=== PATIENT | female | born 1965 ===

== ENCOUNTER 2019-11-22 12:13 | Emergency (ER) | payer SELFPAY ==
[2019-11-22 12:53] VITALS: BP 140/80
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
[2019-11-22 19:29] LABS: ABS Basophils 0.1 10^3/ul (0-0.2); ABS Eosinophils 0.2 10^3/ul (0-0.6); ABS Lymphocytes 2.4 10^3/ul (1.0-4.8); ABS Monocytes 0.5 10^3/ul (0-0.8); ABS Neutrophils 4.9 10^3/ul (1.5-7.7); Hematocrit 45 % (35-47); Hemoglobin 15.5 g/dL (12.0-16.0); Lymphocyte % 30.1 %; Mean Corpuscular HGB Conc 34 g/dL (31-36); Mean Corpuscular Hemoglobin 31 pg (27-31); Mean Corpuscular Volume 91 fL (80-97); Mean Platelet Volume 8.1 fL (7.4-10.4); Platelet Count 309 10^3/uL (150-450); Red Blood Count 4.99 10^6 /uL (3.70-4.87); Red Cell Distribution Width 13 % (10-15); White Blood Count 8.1 10^3/uL (3.5-10.8)
[2019-11-22 19:33] LABS: Albumin 4.4 g/dL (3.2-5.2); Calcium 9.6 mg/dL (8.6-10.3); Potassium 4.2 mmol/L (3.5-5.0); Total Bilirubin 0.5 mg/dL (0.2-1.0)
[2019-11-22 19:39] LABS: Albumin/Globulin Ratio 1.9 (1-3); BUN/Creatinine Ratio 16.4 (8-20); EGFR African American 100.9 (>60); EGFR Non-African American 83.4 (>60); Globulin 2.3 g/dL (2-4); Total Protein 6.7 g/dL (6.4-8.9)
[2019-11-22 19:57] LABS: TSH (Thyroid Stimulating Horm) 0.91 mcIU/mL (0.34-5.60)
--- NOTE | 2019-11-23 10:33 | UC ---
- Progress Note Progress Note: Reviewed notes and avs instructions from yesterday 11/22/19. Reviewed blood work as available. Blood glucose 122mg/dl on venous blood result. (reference lab 70 - 100mg/dl) Hemoglobin A1C 5.9% (reference lab 4.0-5.6%) RN to call pt with results. Agree with AVS instructions. F/u with PCP highly recommended. To ED if any worse or new issues. Course/Dx - Diagnoses Provider Diagnoses: Acute abdominal pain Discharge ED - Sign-Out/Discharge Documenting (check all that apply): Post-Discharge Follow Up All imaging exams completed and their final reports reviewed: Yes - Discharge Plan Condition: Good Disposition: HOME Patient Education Materials: Hematuria (ED), Acute Abdominal Pain (ED) Referrals: [facility] [Provider Group] [facility] [Outside] No Primary Care Phys,NOPCP [Primary Care Provider] - Eldon Howell MD [Medical Doctor] - Additional Instructions: - Call [facility] to set up primary physician - Urology follow up to evaluate for blood in urine - Possible scope needed to evaluate bladder, please call for appointment - Follow up with [facility] for possible pro-kian work/ referral. - Work with [facility] on obtaining insurance - Blood work to return tomorrow- please call for results, abnormal results will be called to you - Go to ER with worsening pain, fever> 102, vomiting, decreased stooling. - Call [facility], and ask for patient services to help with setting up insurance - Billing Disposition and Condition Condition: GOOD Disposition: Home
== END 2019-11-22 15:45 | disposition home or self-care (01) ==
LOC: UCEAST 12:13
DX: R10.9 Unspecified abdominal pain (principal); F17.290 Nicotine dependence, other tobacco product, uncomplicated; Z88.1 Allergy status to other antibiotic agents; Z91.041 Radiographic dye allergy status
CPT/HCPCS: 36415; 76775; 80053; 81003; 83036; 83735; 84443; 85025; 99201; G0463